=== PATIENT | male | born 1980 | race Caucasian/White ===

== ENCOUNTER 2018-11-05 17:00 | Emergency (ER) | payer OTHER ==
[~2018-11-05] VITALS: Ht 172.7 cm; Wt 81.6 kg
--- NOTE | 2018-11-05 17:19 | NUR ---
PT BROUGHT IN FROM HOME FOR C/C L EAR AND THROAT PAIN X 3 DAYS, ALSO C/O COUGH AND CONGESTION
[2018-11-05] MEDS ORDERED: LORAZEPAM 1 MG TABLET ONE (17:56)
[2018-11-05] MEDS ORDERED: LORAZEPAM 1 MG TABLET PO ONE (18:00)
[2018-11-05 18:31] VITALS: BP 136/88
== END 2018-11-05 18:32 | disposition home or self-care (01) ==
LOC: ER 17:03
DX: F41.9 Anxiety disorder, unspecified (principal); F31.9 Bipolar disorder, unspecified